=== PATIENT | male | born 1965 | race Caucasian/White ===

== ENCOUNTER 2021-06-11 11:17 | Emergency (ER) | payer OTHER ==
[~2021-06-11] VITALS: Ht 185.4 cm; Wt 93.0 kg
[2021-06-11] MEDS ORDERED: MORPHINE 4 MG/ML 1ML VIAL/SYRINGE (J2270) IV ONE (13:30)
[2021-06-11] MEDS ORDERED: ONDANSETRON 4MG/2ML VIAL IV ONE (13:30)
[2021-06-11] MEDS ORDERED: NS 1,000 ML IV ONE (13:30)
[2021-06-11 13:31] LABS: BASO % 0.2 % (0.0-1.0); EOS % 0.3 % (0.0-3.0); HEMATOCRIT 46.7 % (42.0-52.0); HEMOGLOBIN 15.5 g/dl (13.5-17.5); LYMPH % 8.9 % (24.0-44.0); MEAN CORPUSCULAR HEMOGLOBIN 31.2 pg (27.0-33.0); MEAN CORPUSCULAR HGB CONC 33.2 g/dl (32.0-36.5); MONO # 0.7 10^3/uL (0.0-0.8); NEUTROPHILS # 9.8 10^3/uL (1.5-8.5); NEUTROPHILS % 84.3 % (36.0-66.0); PLATELET COUNT, AUTOMATED 250 10^3/uL (150-450); RED BLOOD COUNT 4.97 10^6/uL (4.30-6.10); WHITE BLOOD COUNT 11.6 10^3/uL (4.0-10.0)
[2021-06-11] MEDS ORDERED: ISOVUE-370 76% 100ML VIAL As Ordered ONE (13:32)
[2021-06-11 13:54] LABS: C REACTIVE PROTEIN QUANTITATIV 1.31 MG/DL (0.00-0.30)
[2021-06-11 14:11] LABS: ERYTHROCYTE SEDIMENTATION RATE 10 mm/hr (0-20)
[2021-06-11 14:17] LABS: ETHYL ALCOHOL (ETHANOL) < 0.003 % (0.000-0.010)
[2021-06-11] MEDS ORDERED: KETOROLAC 30 MG/ML 1ML VIAL IV ONE (14:30)
[2021-06-11] MEDS ORDERED: methylPREDNISolone 125MG 2ML VIAL IV ONE (14:30)
--- NOTE | 2021-06-11 15:00 | REPVR ---
PROCEDURE INFORMATION: Exam: CT Head Without Contrast Exam date and time: 06/11/2021 2:44 PM Age: 55 years old Clinical indication: Other: L facial swelling, dental abscess TECHNIQUE: Imaging protocol: Computed tomography of the head without contrast. Radiation optimization: All CT scans at this facility use at least one of these dose optimization techniques: automated exposure control; mA and/or kV adjustment per patient size (includes targeted exams where dose is matched to clinical indication); or iterative reconstruction. COMPARISON: No relevant prior studies available. FINDINGS: Brain: There is no acute intracranial hemorrhage. No extra-axial fluid collection. No evidence of acute infarct. Erwin white differentiation is intact. There is no evidence of mass. There is no mass effect or midline shift. Cerebral ventricles: No ventriculomegaly. Paranasal sinuses: Sinus findings are described on maxillofacial CT. Mastoid air cells: No significant mastoid effusion. Bones/joints: No acute fracture. Soft tissues: Unremarkable as visualized. IMPRESSION: No evidence of acute intracranial abnormality. No acute hemorrhage. No evidence of acute infarct or mass. Electronically signed by: Corina Sy On 06/11/2021 15:00:29 PM
--- NOTE | 2021-06-11 15:09 | REPVR ---
PROCEDURE INFORMATION: Exam: CT Maxillofacial With Contrast Exam date and time: 06/11/2021 2:44 PM Age: 55 years old Clinical indication: Other: L facial swelling, dental abscess TECHNIQUE: Imaging protocol: Computed tomography images of the face with intravenous contrast. Radiation optimization: All CT scans at this facility use at least one of these dose optimization techniques: automated exposure control; mA and/or kV adjustment per patient size (includes targeted exams where dose is matched to clinical indication); or iterative reconstruction. Contrast material: ISOVUE 370; Contrast volume: 75 ml; Contrast route: INTRAVENOUS (IV); COMPARISON: No relevant prior studies available. FINDINGS: Orbital cavity: No acute retrobulbar orbital finding. Ocular globes are intact. Bones/joints: Degenerative changes are noted in spine with left neural foraminal narrowing at C3-C4 greater than C4-C5 which is lowest level imaged. Paranasal sinuses: There is polypoid mucosal thickening in left maxillary sinus. There is inferior right maxillary sinus retention cyst or polyp. Soft tissues: There is a soft tissue protrusion from the left side of the nose which may be a mole and clinic click correlate. There is left facial soft tissue swelling adjacent to the mandible, maxilla, and cheek. This is consistent with cellulitis. There is associated thickening of the platysma muscle. There is a small fluid collection measuring 11.4 mm x 3.4 mm on axial images along the buccal surface of the lateral margin of the maxilla which is consistent with an abscess. This is adjacent to what appears to be a carious posterior maxillary bicuspid tooth which shows periapical lucency consistent with periapical abscess, and therefore this is likely odontogenic in etiology. Vasculature: Contrast enhancement is seen in bilateral carotid and vertebral arteries as visualized. IMPRESSION: Small buccal surface abscess along left side of maxilla with adjacent cellulitis. This appears to have arisen from carious posterior maxillary molar tooth which contains a periapical lucency consistent with periapical abscess. Electronically signed by: Corina Sy On 06/11/2021 15:09:39 PM
[2021-06-11] MEDS ORDERED: AMPICILLIN SOD/SULBACTAM SOD 3 GM in D5W MINI-BAG PLUS 100 ML IV ONE (16:05)
[2021-06-11 16:09] LABS: AMPHETAMINES LEVEL URINE NEGATIVE (NEGATIVE); BARBITURATES URINE NEGATIVE (NEGATIVE); BENZODIAZEPINES URINE NEGATIVE (NEGATIVE); CANNABINOIDS URINE NEGATIVE (NEGATIVE); COCAINE METABOLITE URINE NEGATIVE (NEGATIVE); METHADONE URINE NEGATIVE (NEGATIVE); OPIATES URINE POSITIVE (NEGATIVE); PHENCYCLIDINE URINE NEGATIVE (NEGATIVE)
[2021-06-11] MEDS ORDERED: AUGM875T28 PO (18:12)
[2021-06-11] MEDS ORDERED: HYDR-4571 PO (18:12)
[2021-06-11 18:20] VITALS: BP 115/76
== END 2021-06-11 18:47 | disposition home or self-care (01) ==
LOC: M ED 11:17
DX: K04.7 Periapical abscess without sinus (principal); F17.210 Nicotine dependence, cigarettes, uncomplicated
CPT/HCPCS: 36415; 70450; 70487; 80047; 80307; 82077; 83605; 85025; 85652; 86140; 87040; 96361; 96365; 96366; 96375; 99284; J1885; J2270; J2405; J2930; Q9967

== ENCOUNTER → 2021-07-13 | Outpatient (REF) | payer OTHER ==
[~2021-07-13] MED LIST: AUGM875T28 PO; HYDR-4571 PO
[2021-07-13 12:59] LABS: BASO % 0.5 % (0.0-1.0); EOS # 0.2 10^3/uL (0.0-0.5); EOS % 3.1 % (0.0-3.0); HEMATOCRIT 47.5 % (42.0-52.0); HEMOGLOBIN 15.3 g/dl (13.5-17.5); LYMPH # 1.7 10^3/uL (1.5-5.0); LYMPH % 26.7 % (24.0-44.0); MEAN CORPUSCULAR HEMOGLOBIN 30.7 pg (27.0-33.0); MEAN CORPUSCULAR HGB CONC 32.2 g/dl (32.0-36.5); MEAN CORPUSCULAR VOLUME 95.4 fl (80.0-96.0); MONO # 0.4 10^3/uL (0.0-0.8); MONO % 6.9 % (2.0-8.0); NEUTROPHILS # 3.9 10^3/uL (1.5-8.5); NEUTROPHILS % 62.5 % (36.0-66.0); PLATELET COUNT, AUTOMATED 264 10^3/uL (150-450); RED BLOOD COUNT 4.98 10^6/uL (4.30-6.10); WHITE BLOOD COUNT 6.2 10^3/uL (4.0-10.0)
[2021-07-13 13:35] LABS: ALBUMIN 3.4 GM/DL (3.2-5.2); ALT/SGPT 25 U/L (12-78); BILIRUBIN,TOTAL 0.4 MG/DL (0.2-1.0); BLOOD UREA NITROGEN 15 MG/DL (7-18); CARBON DIOXIDE LEVEL 29 MEQ/L (21-32); CHLORIDE LEVEL 107 MEQ/L (98-107); CHOLESTEROL LEVEL 228 MG/DL (<200); CREATININE FOR GFR 0.89 MG/DL (0.70-1.30); GLOMERULAR FILTRATION RATE > 60.0 (>56); GLUCOSE, FASTING 119 MG/DL (70-100); HDL CHOLESTEROL 50 MG/DL (>40); LDL CHOLESTEROL 157 MG/DL (<100); NON-HDL-C 178 MG/DL; POTASSIUM SERUM 4.6 MEQ/L (3.5-5.1); SODIUM LEVEL 139 MEQ/L (136-145); THYROID STIMULATING HORMONE 0.491 uIU/ML (0.358-3.740); TOTAL PROTEIN 6.5 GM/DL (6.4-8.2); TRIGLYCERIDES LEVEL 107 MG/DL (<150)
[2021-07-13 14:14] LABS: HEPATITIS C VIRUS ABY INDEX < 0.0 INDEX (<0.8); HIV 1&2 SCREEN CENTAUR NEGATIVE (NEGATIVE)
== END ==
LOC: M SFHCADAM 08:47
PROVIDERS: ATTEND Family Medicine
DX: Z00.00 Encounter for general adult medical examination without abnormal findings (principal); Z11.4 Encounter for screening for human immunodeficiency virus [HIV]; Z11.59 Encounter for screening for other viral diseases

== ENCOUNTER → 2021-07-13 | Outpatient (CLI) | payer OTHER ==
--- NOTE | 2021-07-13 08:57 | REP ---
INDICATION: PAIN IN RIGHT SHOULDER COMPARISON: None. TECHNIQUE: Internal rotation, external rotation, and Y view. FINDINGS: The acromioclavicular joint is normal. The subacromial space is minimally decreased to 7.8 mm. Glenohumeral joint narrowing along with cortical irregularity to the calcified glenoid rim is appreciated. Humeral head appears normal. No periarticular calcifications or loose bodies identified. No acute fracture or dislocation. IMPRESSION: Early arthritic degenerative changes. <Electronically signed by Juan Pablo Barnett > 07/13/21 [id number]
== END ==
LOC: M ADAMS 08:08
PROVIDERS: ATTEND Family Medicine
DX: M19.011 Primary osteoarthritis, right shoulder (principal)